=== PATIENT | female | born 1945 | race Caucasian/White ===

== ENCOUNTER → 2019-12-24 | Outpatient (CLI) | payer MEDICARE, OTHER | DX: M25.552 Pain in left hip (principal); M25.462 Effusion, left knee; Z96.652 Presence of left artificial knee joint ==

== ENCOUNTER → 2020-01-29 | Outpatient (CLI) | payer MEDICARE, OTHER ==
--- NOTE | 2020-01-30 13:17 | NM ---
EXAM DESCRIPTION: Bone Scan, 3Phase: Nuclear Medicine CLINICAL HISTORY: 74 years Female PAIN DUE TO INTERNAL ORTHOPEDIC IMPLANT. LEFT KNEE. COMPARISON: Left knee radiographs December 23. TECHNIQUE: Patient injected with 25.4 mCi of technetium 99M MDP IV. Immediate flow gamma camera images were obtained of the bilateral knees from various planes. "Blood pool" images were then obtained of the bilateral knees from various planes. Delayed gamma camera images bilateral knees from anterior and posterior and lateral oblique planes were obtained 3 hr after injection. FINDINGS: First- flow phase: Symmetric radiopharmaceutical flow in the bilateral lower extremities. Photopenic region in the left knee from the total arthroplasty. Second-blood pool phase: Photopenic region in the left knee consistent with arthroplasty better demonstrated. No increased uptake/activity in the region of the left knee. Bilateral femoral vessel activity well demonstrated on the right more than the left. Third-static phase: Photopenia in the left tibial femoral joint space as previously seen. Increased activity at uptake on the medial and lateral left tibial plateaus along with bone activity on the lateral aspect of the tibial stem. Not significantly abnormal. Increased activity in the right patella, and the right medial condyle and medial tibial plateau IMPRESSION: 1. Triple phase radionuclide bone scan showing no evidence of significant loosening or infection in and around the left total knee arthroplasty. Activity in the tibial plateaus and abutting the tibial stem is interpreted to be nonspecific but not abnormal. 2. 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 Electronically signed by: Rojelio Latham MD 01/30/2020 1:15 PM CDT
== END ==
LOC: NM 11:42
PROVIDERS: ATTEND Orthopaedic Surgery
DX: T84.84XA Pain due to internal orthopedic prosthetic devices, implants and grafts, initial encounter (principal); M17.11 Unilateral primary osteoarthritis, right knee; Z96.652 Presence of left artificial knee joint
CPT/HCPCS: 78315; A9503

== ENCOUNTER → 2020-01-31 | Outpatient (CLI) | payer MEDICARE, OTHER | LOC: GMAM 11:15 | PROVIDERS: ATTEND Family Medicine | DX: R94.5 Abnormal results of liver function studies (principal) ==